=== PATIENT | female | born 1965 | race Hispanic/Latino ===

== ENCOUNTER 2017-06-04 09:23 | Outpatient (CLI) | payer BC | END 2017-06-04 09:24 | disposition home or self-care (01) | LOC: BICMAMMO 09:23 | PROVIDERS: ATTEND Student in an Organized Health Care Education/Training Program | DX: Z12.31 Encounter for screening mammogram for malignant neoplasm of breast (principal) | CPT/HCPCS: 77063; 77067 ==

== ENCOUNTER 2018-12-06 10:13 | Outpatient (CLI) | payer BC ==
--- NOTE | 2018-12-06 15:10 | MRI ---
MRI OF RIGHT ANKLE: DATE: 12/06/2018. PROVIDED CLINICAL HISTORY: Chronic right ankle pain. FINDINGS: Evaluation is limited by patient motion and inhomogeneous fat saturation. There is partial thickness nonattenuating interstitial tearing involving the peroneus longus tendon a t and slightly cranial to the level of the fibular groove. There is greater than physiologic tenosyn ovial fluid. There is greater than physiologic posterior tibialis tenosynovial fluid. The anterior extensor, medial flexor, and Achilles tendons demonstrate an intact MR appearance. The peroneus brev is appears intact. Intact fibers of the anterior talofibular ligament are not identified. This could be in part on the basis of motion in this region on both the axial and coronal images. The medial and lateral ankle li gaments appear otherwise grossly intact. No regional joint effusion is evident. Alignment appears anatomic. Joint spaces appear preserved. No focal concerning regional marrow or muscular signal abnormality apparent. The courses of the regional major neurovascular structures appear unremarkable. There is preservatio n of the normal signal intensity in the tarsal sinus. Plantar aponeurosis appears normal. IMPRESSION: 1. Partial thickness interstitial tearing involving the peroneus longus tendon as described. Associ ated tenosynovitis. 2. Intact fibers of the anterior talofibular ligament are not identified, with limitations as descri bed above. POS: OFF
== END 2018-12-06 10:14 | disposition home or self-care (01) ==
LOC: TBSIIMAG 10:13
PROVIDERS: ATTEND Podiatrist
DX: S93.401D Sprain of unspecified ligament of right ankle, subsequent encounter (principal); M65.871 Other synovitis and tenosynovitis, right ankle and foot

== ENCOUNTER 2021-04-22 08:36 | Outpatient (CLI) | payer BC | END 2021-04-22 08:37 | disposition home or self-care (01) | LOC: TBSIIMAG 08:36 | PROVIDERS: ATTEND Orthopaedic Surgery Hand Surgery | DX: S63.591A Other specified sprain of right wrist, initial encounter (principal); M19.041 Primary osteoarthritis, right hand; M18.11 Unilateral primary osteoarthritis of first carpometacarpal joint, right hand ==

== ENCOUNTER 2021-06-21 11:33 | Observation (INO) | payer BC ==
[2021-06-21] MEDS ORDERED: Ondansetron ODT 4 MG TAB PO PRN (15:05)
[2021-06-21] MEDS ORDERED: Acetaminophen 325 MG TAB PO PRN (15:05)
[2021-06-21] MEDS ORDERED: hydrALAZINE 20 MG/ML VIAL SLOW IVP PRN ×2 (15:05→17:16)
[2021-06-21] MEDS ORDERED: Ondansetron PF 4 MG/2 ML Vial IVP PRN (15:05)
[2021-06-21 16:45] VITALS: BMI 34.9
[2021-06-21 17:25] LABS: Hemoglobin A1c 5.2 % (4.0-6.0)
[2021-06-21 17:33] LABS: Phosphorus 3.3 mg/dL (2.3-4.7)
[2021-06-21 17:38] LABS: Cardiac Risk 2.9 (Less than 4.5)
[2021-06-21] MEDS ORDERED: Tetrahydrozoline 0.05% OPTH 15 ML BOT EA EYE PRN (18:55)
[2021-06-21] MEDS ORDERED: Fluticasone Propionate Nasal Spray 16 gm Bottle NASAL PRN (18:55)
[2021-06-21] MEDS ORDERED: Non-Formulary Item 1 EACH (Plecanatide [Trulance] 3 MG Tablet) PO PRN (18:55)
[2021-06-21] MEDS ORDERED: Loratadine 10 MG TAB PO PRN (18:59)
[2021-06-21] MEDS ORDERED: Albuterol 200 PUFF (6.7GM INHALER) INH PRN (19:02)
[2021-06-21] MEDS ORDERED: Atorvastatin Calcium 40 MG TAB PO SCH (21:00)
[2021-06-22 05:57] LABS: ALT (SGPT) 18 U/L (8-55); AST (SGOT) 20 U/L (5-34); Albumin 3.9 g/dL (3.5-5.0); Alkaline Phosphatase 87 U/L (40-110); Anion Gap 14 mmol/L (10-20); BUN (Urea Nitrogen) 13 mg/dL (9.8-20.1); Bilirubin, Total 1.1 mg/dL (0.2-1.2); Calc. Creatinine Clearance 122 mL/min (70-130); Calcium 8.9 mg/dL (7.8-10.44); Carbon Dioxide 22 mmol/L (22-29); Chloride 105 mmol/L (98-107); Globulin 3.1 g/dL (2.4-3.5); Glucose 104 mg/dL (70-105); Potassium 3.7 mmol/L (3.5-5.1); Sodium 137 mmol/L (136-145)
[2021-06-22 05:59] LABS: #Eosinphils 0.2 thou/uL (0.0-0.7); #Lymphocytes 2.2 thou/uL (1.20-3.40); #Monocytes 0.5 thou/uL (0.11-0.59); #Neutrophils 4.4 thou/uL (1.40-6.50); %Basophils 0.4 % (0.0-1.0); %Eosinophils 2.7 % (0.0-10.0); %Lymphocytes 30.1 % (21.0-51.0); %Monocytes 7.3 % (0.0-10.0); %Neutrophils 59.5 % (42.0-75.0); Hemoglobin 14.2 g/dL (12.0-16.0); Mean Corpuscular HGB CONC 32.7 g/dL (32.0-36.0); Mean Corpuscular Hemoglobin 30.3 pg (27.0-31.0); Mean Corpuscular Volume 92.6 fL (78.0-98.0); Mean Platelet Volume 8.9 fL (7.4-10.4); Platelet Count 232 thou/uL (130-400); RBC Distribution Width 12.1 % (11.5-14.5); Red Blood Cell (RBC) Count 4.69 mill/uL (4.20-5.40); White Blood Cell (WBC) Count 7.5 thou/uL (4.8-10.8)
[2021-06-22] MEDS ORDERED: Enoxaparin Sodium 40 MG/0.4 ML SYRINGE SC SCH (09:00)
[2021-06-22] MEDS ORDERED: Lisinopril 5 MG TAB PO SCH (09:00)
[2021-06-22 12:03] VITALS: TEMP 97.5
[2021-06-22] MEDS ORDERED: Non-Formulary Item 1 EACH (Plecanatide [Trulance] 3 MG Tablet) PO PRN (12:30)
[2021-06-22 12:59] VITALS: BP 132/79
== END 2021-06-22 13:17 | disposition home or self-care (01) ==
LOC: ERS 11:33 → NEURO 14:02 → UNDODISOB 06-22 12:18
PROVIDERS: ADMIT Student in an Organized Health Care Education/Training Program; ATTEND Student in an Organized Health Care Education/Training Program
DX: G43.809 Other migraine, not intractable, without status migrainosus (principal); H93.11 Tinnitus, right ear; I16.0 Hypertensive urgency; J45.909 Unspecified asthma, uncomplicated; K21.9 Gastro-esophageal reflux disease without esophagitis; D64.9 Anemia, unspecified; Z87.891 Personal history of nicotine dependence; Z88.6 Allergy status to analgesic agent; Z91.011 Allergy to milk products; Z91.013 Allergy to seafood; Z91.018 Allergy to other foods; Z91.041 Radiographic dye allergy status; Z91.048 Other nonmedicinal substance allergy status
CPT/HCPCS: 36415; 70551; 80053; 80061; 83036; 83735; 84100; 84443; 84484; 85025; 96372; G0378; J1650

== ENCOUNTER 2022-01-27 13:23 | Outpatient (CLI) | payer BC ==
[~2022-01-27 13:23] MED LIST: Iopamidol 370 76% 100 ML VIAL ONE
== END 2022-01-27 13:24 | disposition home or self-care (01) ==
LOC: CT 13:23
PROVIDERS: ATTEND Student in an Organized Health Care Education/Training Program
DX: H93.A9 Pulsatile tinnitus, unspecified ear (principal)
CPT/HCPCS: 70496